=== PATIENT | male | born 1955 | race Caucasian/White ===

== ENCOUNTER 2016-09-12 10:23 | Emergency (ER) | payer BC ==
[2016-09-12] MEDS ORDERED: ONDANSETRON 4 MG/2 ML VIAL IVP ONE (11:43)
[2016-09-12] MEDS ORDERED: fentaNYL 100 MCG/2 ML INJ IVP ONE ×2 (11:43→13:17)
[2016-09-12] MEDS ORDERED: IOPAMIDOL (ISOVUE-300) 100 ML BTL ONE (13:32)
--- NOTE | 2016-09-12 14:56 | EDPHY ---
H & P Time Seen by Provider: 09/12/16 10:59 HPI/ROS: CHIEF COMPLAINT: Severe back pain HISTORY OF PRESENT ILLNESS: 61-year-old male presents to the emergency department with severe back pain after he fell last evening at home. Around 8: 30 p.m., the patient was walking out of his garage on to fiber 6 steps and the steps pulled away from the threshold and then he fell and hit his mid to lower back on the threshold of the house. He did not hit his head or lose consciousness. Denies hitting his head or losing consciousness. Denies neck pain. He feels mildly short of breath but more so having pain with taking deep breaths. Denies injury to upper or lower extremities. Denies paresthesias in his upper lower extremities. REVIEW OF SYSTEMS: Constitutional: No fever, no chills. Eyes: No double or blurry vision. ENT: No sore throat. Respiratory: Shortness of breath. No cough. Cardiac: No chest pain. Gastrointestinal: No abdominal pain, vomiting or diarrhea. Genitourinary: No dysuria. Musculoskeletal: Back pain as above. No neck pain. Skin: No rashes. Neurological: No headache. Past Medical/Surgical History: BPH Social History: and lives in [place] Smoking Status: Never smoked Physical Exam: General Appearance: Alert, no distress. No visible signs of trauma to his head. Mentating normally and answering questions appropriately. Currently having pain when he tries to lie back. No respiratory distress. Eyes: Pupils equal and round. Extraocular motions are all intact. ENT: Mouth: Mucous membranes moist. Respiratory: No wheezing, rhonchi, or rales, lungs are clear to auscultation. Cardiovascular: Regular rate and rhythm. Gastrointestinal: Abdomen is soft and nontender, no masses, no rebound or guarding, bowel sounds normal. Neurological: Alert and oriented x 3, cranial nerves II through XII grossly intact Skin: Warm and dry, no rashes. Musculoskeletal: Nontender to palpate along cervical spine. Neck is supple. Tenderness with palpation along the lower thoracic spine. Nontender to palpate along the lumbar spine. He has also pain with palpation just to the left lateral of his lower lumbar spine. Extremities: Full range of motion and no peripheral edema. Psychiatric: Patient is oriented X 3, there is no agitation. Constitutional: Initial Vital Signs Temperature (C) 36.6 C 09/12/16 10:26 Heart Rate 70 09/12/16 10:26 Respiratory Rate 16 09/12/16 10:26 Blood Pressure 117/82 H 09/12/16 10:26 O2 Sat (%) 97 09/12/16 10:26 O2 Delivery Mode Room Air Allergies/Adverse Reactions: No Known Allergies Allergy (Unverified 09/12/16 10:28) Home Medications: Medication Instructions Recorded oxyCODONE/APAP 325 [Percocet 1 - 2 tab PO Q4-6PRN PRN #15 tab 09/12/16 5/325] Medical Decision Making - Diagnostics Imaging Results: Imaging Impressions Chest X-Ray 09/12/16 11:45 Impression: No acute pulmonary disease. Thoracic Spine X-Ray 09/12/16 11:46 Impression: 1. Negative for acute fracture. 2. Multilevel degenerative changes are noted. Chest CT 09/12/16 12:41 Impression: Nondisplaced posterior left 10th rib fracture and possibly 11th. Mild atelectasis both lung bases. No evidence for pleural effusion or pneumothorax. Degenerative change thoracic spine. Results called and discussed with BO OROSCO at 09/12/2016 14:35. Imaging: Discussed imaging studies w/ call worker person Radiologist, I viewed and interpreted images myself ED Course/Re-evaluation: 61-year-old male presents to the emergency department with severe mid back pain after he fell approximately 4 or 5 feet. He did not hit his head or lose consciousness. Initial chest x-ray was unremarkable. No evidence of obvious rib fracture or evidence of pneumonia. Thoracic spine is unremarkable. The patient continued to be in severe distress. He was unable to lie flat. I recommended CT imaging of the chest with IV contrast. I discussed the pros and cons of this including radiation exposure the patient agreed with CT scan. CT imaging of the chest reveals left nondisplaced posterior rib fractures #10 and #11. The patient was given incentive spirometer. The patient feels comfortable being discharged home. I do not think patient needs admission to the hospital. He was given Percocet for severe pain. He was encouraged to take deep breaths and return if he feels short of breath or any other change in symptoms. He was also discouraged from lifting or any activities that cause pain in his back. Differential Diagnosis: Including but not limited rib fracture, compression fractures, pneumothorax, intra-abdominal injury, chest wall contusion - Data Points Laboratory Results: 09/12/16 13:16 POC Hgb 16.0 gm/dL gm/dL (13.7-17.5) POC Hct 47 % % (40-51) POC Sodium 142 mEq/L mEq/L (134-144) POC Potassium 4.3 mEq/L mEq/L (3.3-5.0) POC Chloride 103 mEq/L mEq/L (97-110) POC BUN 23 mg/dL mg/dL (7-23) POC Creatinine 1.1 mg/dL mg/dL (0.7-1.3) POC Glucose 105 mg/dL H mg/dL (70-100) Medications Given: Discontinued Medications Fentanyl (Sublimaze) 50 mcg IVP EDNOW ONE Stop: 09/12/16 11:44 Last Admin: 09/12/16 12:15 Dose: 50 mcg Fentanyl (Sublimaze) 50 mcg IVP ONCE ONE Stop: 09/12/16 13:18 Last Admin: 09/12/16 13:24 Dose: 50 mcg Ondansetron HCl (Zofran) 4 mg IVP EDNOW ONE Stop: 09/12/16 11:44 Last Admin: 09/12/16 12:15 Dose: 4 mg Point of Care Test Results: 09/12/16 13:16 POC Sodium 142 POC Potassium 4.3 POC Chloride 103 POC BUN 23 POC Creatinine 1.1 POC Glucose 105 H Departure - Departure Disposition: Home, Routine, Self-Care Clinical Impression: Ribs, multiple fractures Qualifiers: Encounter type: initial encounter Fracture type: closed Laterality: left Qualified Code(s): S22.42XA - Multiple fractures of ribs, left side, initial encounter for closed fracture Condition: Good Instructions: Rib Fracture (ED) Additional Instructions: Deep breaths, use incentive spirometer. Ibuprofen 600 mg every 8 hours as needed for pain. Percocet for severe pain as directed. Return if you feel shortness of breath or if you feel worse in any way. Referrals: Med Cornelius MD [[facility] [place] - 2-3 days, if not improved ( Primary care provider medical transcription) Prescriptions: oxyCODONE/APAP 5/325 [Percocet 5/325] 1 - 2 tab PO Q4-6PRN PRN #15 tab PRN Reason: For Moderate To Severe Pain
[2016-09-12 15:11] VITALS: BP 118/68; PULSE 66; RESP 18; TEMP 98.4; O2SAT 98
== END 2016-09-12 15:11 | disposition home or self-care (01) ==
DX: S22.42XA Multiple fractures of ribs, left side, initial encounter for closed fracture (principal); W18.09XA Striking against other object with subsequent fall, initial encounter; Y92.009 Unspecified place in unspecified non-institutional (private) residence as the place of occurrence of the external cause; Y99.8 Other external cause status; Y93.01 Activity, walking, marching and hiking
CPT/HCPCS: 82947-QW; 96374; J2405; J3010; Q9967